=== PATIENT | female | born 1945 | race Caucasian/White ===

== ENCOUNTER 2024-12-10 07:27 | Emergency (ER) | payer MEDICARE, OTHER, SELFPAY ==
[2024-12-10 07:33] VITALS: BP 158/87
[2024-12-10 07:41] VITALS: BMI 28.5
--- NOTE | 2024-12-10 07:57 | ED.GENMED ---
History of Present Illness
General
Chief Complaint: Skin Surface Trauma
Time Seen by Provider: 12/10/24 07:49
History of Present Illness
History of Present Illness:
79-year-old female presents to the emergency department for evaluation of persistent bleeding from a avulsion laceration to the right fifth finger. Initially treated in urgent care 2 days ago with bandaging however upon removing bandaging today the
symptoms persisted. She is on anticoagulants
Past History
Past History
ED Past Medical History: Arrthythmia (paf), HTN and Hypercholesterolemia
Social History
Tobacco: Non-smoker
Alcohol: None
Drug: None
Personal: Single
Living: with family
Review of Systems
Review of Systems
Allergies reviewed?: Yes
All Other Systems: ROS reviewed and negative except as documented in HPI and ROS
Phy Exam
Physical Exam
Physical Exam:
GEN: Well appearing, NAD, WDWN
HEENT: Oral mucosa moist, no scleral icterus
Cardiac: Regular rate
Lung: No respiratory distress, no tachypnea
MSK: No gross deformity or injuries
Skin: Good color, no pallor or jaundice, no rashes. Avulsion laceration to the right fifth finger with persistent slow bleeding
Neuro: AO x3, moves all extremities freely
Psych: Calm, cooperative
Course
Vital Signs
Initial and Last Documented VS:
Initial Vital Signs
Temp Pulse Resp BP Pulse Ox
97.7 F 70 16 158/87 98
12/10/24 07:33 12/10/24 07:33 12/10/24 07:33 12/10/24 07:33 12/10/24 07:33
Last Documented Vital Signs
Temp Pulse Resp BP Pulse Ox
97.7 F 70 16 158/87 98
12/10/24 07:33 12/10/24 07:33 12/10/24 07:33 12/10/24 07:33 12/10/24 07:57
MDM/Problems Addressed
MDM/Problems Addressed:
Finger tourniquet was applied and a Surgicel dressing was placed with good hemostasis. Discussed wound care with patient
*Pulse Oximetry
SaO2: 98
Oxygen Mode of Delivery: Room air
Patient hypoxic: no
*Critical Care Note
Total Time (30-74mins, 75-104mins- exclusive of procedures): Not Applicable
ED Attending Note
-
Portions of this chart may have been created with voice recognition software.� Occasional wrong word or��sound alike� substitutions may have occurred due to the inherent limitations of voice recognition software.
Discharge Plan
Departure
Patient Disposition: Home (Routine Discharge)
Date of Disposition: 12/10/24
Time of Disposition: 08:21
Patient with high blood pressure during this ER visit?: No
Discharge Problem:
Finger laceration
Instructions: Wound Care (DC)
Prescriptions:
No Action
brimonidine [Alphagan P] 1 DROP drops
1 drp OPHTHALMIC BID
Patient Comments:
Both eyes
rosuvastatin 5 MG tablet
5 mg PO Q48H
Patient Comments:
every other day
metoprolol tartrate 25 MG tablet
25 mg PO DAILY
mupirocin 1 APPLIC ointment
1 applic intranasal BID Qty: 1 0RF
Patient Comments:
pt states she started as ordered on 12/03/20 took a dose this am at 0615
sennosides [senna] 1 TABLET tablet
2 tab PO BID 0RF
prochlorperazine maleate 5 MG tablet
5 mg PO Q8HPRN PRN (Reason: nausea) Qty: 15 0RF
magnesium hydroxide 30 ML suspension
30 ml PO DAILYPRN PRN (Reason: constipation) 0RF
pantoprazole 40 MG tablet,delayed release (DR/EC)
40 mg PO DAILY Qty: 30 0RF
docusate sodium 100 MG capsule
100 mg PO BID 0RF
tramadol 50 MG tablet
50 mg PO Q6HPRN PRN (Reason: moderate-severe pain) Qty: 30 0RF
Rx Instructions:
1 tab moderate pain or 2 if pain severe
Dx joint replacement
ongoing therapy
warfarin [Jantoven] 2.5 MG tablet
2.5 mg PO QPM Qty: 30 1RF
Rx Instructions:
Take 2 tabs (5 mg) on 12/07 and 12/08 PM; dose to be adjusted by surgeon after INR result 12/09/20
acetaminophen 500 MG tablet
1,000 mg PO Q6H Qty: 60 0RF
Rx Instructions:
Do not exceed >4000 mg daily.
rivaroxaban [Xarelto] 20 MG tablet
20 mg PO QPM Qty: 0 0RF
Rx Instructions:
DO NOT RESUME UNTIL OFF WARFARIN IN 2 WEEKS AND INR <2
cephalexin 500 mg capsule
500 mg PO QID Qty: 40 0RF
Referrals:
Gabriela Richter MD [Family Provider, Internal Medicine]
Activity Restrictions/Additional Instructions:
Keep this dressing in place for remainder of day
Gently wet the dressing before removal
Change bandage each day...the Surgicel is designed to dissolve in 7-10 days.
Cover loosely with non stick gauze beginning tomorrow
Interventions
Interventions:
*Risk Screen - Suicide Last Done: 12/10/24 07:33
*General Assessment Last Done: 12/10/24 07:56
*Neglect/Abuse Screening Last Done: 12/10/24 07:33
*ED- Fall Risk Assessment Last Done: 12/10/24 07:41
*ED COVID-19 Vaccine History Last Done: 12/10/24 07:41
*Nursing Disposition Last Done: 12/10/24 08:26
ED-Skin Assessment Last Done: 12/10/24 07:42
Discharge Date and Time
Discharge Date/Time: 12/10/24 08:26
Print Language: ICELANDIC
== END 2024-12-10 08:26 | disposition home or self-care (01) ==
LOC: EMR 07:27
PROVIDERS: EMERGENCY PHYSICIAN Emergency Medicine; FAMILY PHYSICIAN Internal Medicine
DX: S61.216A Laceration without foreign body of right little finger without damage to nail, initial encounter (principal); W45.8XXA Other foreign body or object entering through skin, initial encounter; E78.00 Pure hypercholesterolemia, unspecified; I10 Essential (primary) hypertension; I48.0 Paroxysmal atrial fibrillation
CPT/HCPCS: 99282